=== PATIENT | female | born 1965 | race Caucasian/White ===

== ENCOUNTER 2019-10-31 16:32 | Emergency (ER) | payer OTHER ==
[~2019-10-31] VITALS: Ht 162.6 cm; Wt 52.3 kg
[~2019-10-31 16:32] MED LIST: ALBU8.5H8 IH; AMIT10TA6 PO; BACL10TA PO; BUSP10TA23 PO; CIPR-279 PO; FLUT250D2 IH; GABA-531 PO; INSLAN SQ; INSU100V SQ; LIPA1CAP18 PO; LISI-660 PO; LOVA20 PO; METF-445 PO; NAPR-1193 PO; PERID15L MM; PROM6.2521 PO; RANI150T7 PO; ROPI0.257 PO; TRAZ-257 PO
[2019-10-31] MEDS ORDERED: CLIN300C9 PO (17:01)
[2019-10-31] MEDS ORDERED: INSNOV SQ (17:01)
[2019-10-31] MEDS ORDERED: FURO20TA4 PO (17:01)
[2019-10-31 17:02] LABS: GLUCOSE,POINT OF CARE 444 MG/DL (70-110)
[2019-10-31] MEDS ORDERED: FUROSEMIDE 40 MG/4 ML VIAL IVP ONE (18:30)
[2019-10-31] MEDS ORDERED: INSULIN REGULAR, HUMAN 100 UNITS/ML IVP ONE (18:30)
[2019-10-31 18:31] LABS: BASOPHILS % (AUTO) 0.7 % (0.0-2.0); EOSINOPHILS % (AUTO) 1.4 % (1.0-6.0); HEMATOCRIT 32.9 % (36-46); HEMOGLOBIN 10.8 g/dL (12.0-16.0); LYMPHOCYTES # (AUTO) 1.7 K/uL (1.0-4.8); LYMPHOCYTES % (AUTO) 27.7 % (22.0-44.0); MEAN CORPUSCULAR VOLUME 91 fL (80-100); MONOCYTES # (AUTO) 0.6 K/uL (0.1-1.0); MONOCYTES % (AUTO) 10.2 % (2.0-9.0); NEUTROPHILS # (AUTO) 3.6 K/uL (1.8-7.7); PLATELET COUNT (AUTO) 284 K/uL (150-450); RED BLOOD CELL COUNT(AUTO) 3.62 MIL/uL (4.00-5.20); RED CELL DISTRIBUTION WIDTH 14.6 % (11.5-14.5)
[2019-10-31 18:32] LABS: GLUCOSE,POINT OF CARE 450 MG/DL (70-110)
[2019-10-31 18:47] LABS: ALBUMIN 3.3 g/dL (3.4-5.0); BILIRUBIN,TOTAL 0.2 mg/dL (0.1-1.0); CALCIUM, TOTAL 10.3 mg/dL (8.8-10.5); CREATININE 1.02 mg/dL (0.60-1.30); POTASSIUM 4.6 mmol/L (3.5-5.1); TOTAL PROTEIN, SERUM 7.3 g/dL (6.4-8.2)
[2019-10-31 20:17] LABS: GLUCOSE,POINT OF CARE 391 MG/DL (70-110)
[2019-10-31 21:10] LABS: GLUCOSE,POINT OF CARE 366 MG/DL (70-110)
[2019-10-31 21:16] VITALS: BP 116/76
== END 2019-10-31 21:18 | disposition left against medical advice (07) ==
LOC: EMS 16:33
DX: S81.802A Unspecified open wound, left lower leg, initial encounter (principal); E11.621 Type 2 diabetes mellitus with foot ulcer; L97.511 Non-pressure chronic ulcer of other part of right foot limited to breakdown of skin; R60.0 Localized edema; I10 Essential (primary) hypertension; J45.909 Unspecified asthma, uncomplicated; F17.210 Nicotine dependence, cigarettes, uncomplicated; Z79.899 Other long term (current) drug therapy; Z79.4 Long term (current) use of insulin; Z98.890 Other specified postprocedural states; Z79.84 Long term (current) use of oral hypoglycemic drugs; Z88.1 Allergy status to other antibiotic agents; Z88.8 Allergy status to other drugs, medicaments and biological substances; Z86.73 Personal history of transient ischemic attack (TIA), and cerebral infarction without residual deficits; X58.XXXA Exposure to other specified factors, initial encounter; Y93.89 Activity, other specified; Y92.89 Other specified places as the place of occurrence of the external cause; Y99.8 Other external cause status
CPT/HCPCS: 36415; 80053; 82962; 83880; 85025; 85379; 96374; 96375; 99284; 99406; J1815; J1940; 82948